=== PATIENT | male | born 2000 | race African-American/Black ===

== ENCOUNTER 2024-12-30 20:27 | Emergency (ER) | payer SELFPAY ==
[~2024-12-30] VITALS: Ht 180.3 cm; Wt 174.6 kg
[2024-12-30 20:28] VITALS: BP 126/80; PULSE 113; RESP 18; TEMP 98.9; O2SAT 98
[2024-12-30] MEDS ORDERED: TORADOL ONE (20:42)
[2024-12-30] MEDS: TORADOL IM STA (20:47)
[2024-12-30 20:56] VITALS: BP 136/74; PULSE 103; RESP 18; TEMP 98.9; O2SAT 97
[2024-12-30 21:03] LABS: INFLUENZA VIRUS A ANTIGEN NEGATIVE (NEG); INFLUENZA VIRUS B ANTIGEN NEGATIVE (NEG)
[2024-12-30 21:14] VITALS: BP 126/75; PULSE 101; RESP 18; O2SAT 97
== END 2024-12-30 21:23 | disposition home or self-care (01) ==
LOC: ER 20:27
DX: J06.9 Acute upper respiratory infection, unspecified (principal); F17.200 Nicotine dependence, unspecified, uncomplicated; Z20.822 Contact with and (suspected) exposure to COVID-19
CPT/HCPCS: 99283; 87426; 96372; 87070; 87880; 87804 ×2; J1885